=== PATIENT | male | born 1995 | race African-American/Black ===

== ENCOUNTER 2019-10-14 14:39 | Emergency (ER) | payer OTHER ==
[~2019-10-14] VITALS: Ht 190.5 cm; Wt 92.9 kg
[2019-10-14 14:40] VITALS: BP 125/89
[2019-10-14] MEDS ORDERED: MAGIC MOUTHWASH SUSPENSION BTL SS ONE (16:45)
[2019-10-14] MEDS ORDERED: MAGICMW SSP (16:58)
== END 2019-10-14 17:08 | disposition home or self-care (01) ==
LOC: M ED 14:39
DX: B08.4 Enteroviral vesicular stomatitis with exanthem (principal); Z91.018 Allergy to other foods

== ENCOUNTER 2020-04-09 09:07 | Emergency (ER) | payer OTHER ==
[~2020-04-09 09:07] MED LIST: MAGICMW SSP
[2020-04-09] MEDS ORDERED: ONDANSETRON 4MG/2ML VIAL As Ordered ONE (10:03)
[2020-04-09] MEDS ORDERED: KETOROLAC 30 MG/ML 1ML VIAL ONE (10:03)
[2020-04-09] MEDS ORDERED: ONDANSETRON 4MG/2ML VIAL ONE (10:03)
[2020-04-09] MEDS ORDERED: MORPHINE 4 MG/ML 1ML VIAL/SYRINGE (J2270) As Ordered ONE (10:03)
[2020-04-09] MEDS ORDERED: MORPHINE 4 MG/ML 1ML VIAL/SYRINGE (J2270) ONE (10:03)
[2020-04-09] MEDS ORDERED: KETOROLAC 30 MG/ML 1ML VIAL As Ordered ONE (11:29)
== END 2020-04-09 12:42 | disposition home or self-care (01) ==
LOC: M ED 09:07
DX: S93.402A Sprain of unspecified ligament of left ankle, initial encounter (principal); S70.01XA Contusion of right hip, initial encounter; S70.211A Abrasion, right hip, initial encounter; W10.9XXA Fall (on) (from) unspecified stairs and steps, initial encounter; Y92.89 Other specified places as the place of occurrence of the external cause; F17.200 Nicotine dependence, unspecified, uncomplicated
CPT/HCPCS: 72110; 73502; 73610; 96361; 96374; 96375; 99284; J1885; J2270; J2405

== ENCOUNTER 2022-03-01 09:45 | Emergency (ER) | payer OTHER ==
[~2022-03-01] VITALS: Ht 190.5 cm; Wt 93.5 kg
[2022-03-01 09:46] VITALS: BP 142/85
[2022-03-01 11:23] LABS: BASO # 0.1 10^3/uL (0.0-0.2); BASO % 1.1 % (0.0-1.0); EOS # 0.2 10^3/uL (0.0-0.5); EOS % 3.4 % (0.0-3.0); HEMATOCRIT 43.7 % (42.0-52.0); HEMOGLOBIN 14.3 g/dl (13.5-17.5); LYMPH % 45.5 % (24.0-44.0); MEAN CORPUSCULAR HEMOGLOBIN 30.7 pg (27.0-33.0); MEAN CORPUSCULAR HGB CONC 32.7 g/dl (32.0-36.5); MEAN CORPUSCULAR VOLUME 93.8 fl (80.0-96.0); MONO # 0.4 10^3/uL (0.0-0.8); MONO % 8.3 % (2.0-8.0); NEUTROPHILS # 1.8 10^3/uL (1.5-8.5); NEUTROPHILS % 40.8 % (36.0-66.0); PLATELET COUNT, AUTOMATED 209 10^3/uL (150-450); RED BLOOD COUNT 4.66 10^6/uL (4.30-6.10); WHITE BLOOD COUNT 4.4 10^3/uL (4.0-10.0)
[2022-03-01 11:28] LABS: APPEARANCE, URINE CLEAR (CLEAR); BACTERIA, URINE AUTO NEGATIVE (NEGATIVE); BILIRUBIN, URINE AUTO NEGATIVE (NEGATIVE); BLOOD, URINE BLOOD NEGATIVE (NEGATIVE); COLOR, URINE YELLOW (YELLOW); GLUCOSE, URINE (UA) AUTO NEGATIVE (NEGATIVE); KETONE, URINE AUTO NEGATIVE (NEGATIVE); LEUKOCYTE ESTERASE, URINE AUTO NEGATIVE (NEGATIVE); NITRITE, URINE AUTO NEGATIVE (NEGATIVE); PROTEIN, URINE AUTO NEGATIVE (NEGATIVE); RBC, URINE AUTO 0 /HPF (0-3); SPECIFIC GRAVITY URINE AUTO 1.016 (1.002-1.035); SQUAMOUS EPITHELIAL CELL UR AU 0 /HPF (0-6); UROBILINOGEN, URINE AUTO 0.2 mg/dL (0.0-2.0); WBC, URINE AUTO 0 /HPF (0-3)
[2022-03-01 11:43] LABS: ALBUMIN 3.8 GM/DL (3.2-5.2); ALT/SGPT 26 U/L (12-78); BILIRUBIN,DIRECT 0.3 MG/DL (0.0-0.2); BILIRUBIN,TOTAL 1.2 MG/DL (0.2-1.0); BLOOD UREA NITROGEN 9 MG/DL (7-18); CALCIUM LEVEL 9.2 MG/DL (8.5-10.1); CARBON DIOXIDE LEVEL 31 MEQ/L (21-32); CHLORIDE LEVEL 104 MEQ/L (98-107); CREATININE FOR GFR 1.16 MG/DL (0.70-1.30); GLOMERULAR FILTRATION RATE > 60.0 (>60); GLUCOSE, FASTING 93 MG/DL (70-100); LIPASE 80 U/L (73-393); POTASSIUM SERUM 4.9 MEQ/L (3.5-5.1); SODIUM LEVEL 139 MEQ/L (136-145); TOTAL PROTEIN 6.9 GM/DL (6.4-8.2)
[2022-03-01] MEDS ORDERED: PROT20TA11 PO (13:11)
== END 2022-03-01 13:38 | disposition home or self-care (01) ==
LOC: M ED 09:45
DX: K80.50 Calculus of bile duct without cholangitis or cholecystitis without obstruction (principal); F17.200 Nicotine dependence, unspecified, uncomplicated; Z91.018 Allergy to other foods

== ENCOUNTER 2022-03-03 15:33 | Emergency (ER) | payer OTHER ==
[~2022-03-03] VITALS: Ht 190.5 cm; Wt 93.6 kg
[~2022-03-03 15:33] MED LIST changes: +PROT20TA11 PO
[2022-03-03 22:17] VITALS: BP 150/84
== END 2022-03-04 02:39 | disposition left against medical advice (07) ==
LOC: M ED 15:33
DX: Z53.21 Procedure and treatment not carried out due to patient leaving prior to being seen by health care provider (principal)

== ENCOUNTER → 2023-08-19 | Outpatient (REF) | payer OTHER | LOC: M LAB REF 17:52 | PROVIDERS: ATTEND Physician Assistant Medical | DX: J02.9 Acute pharyngitis, unspecified (principal) ==

== ENCOUNTER 2024-05-18 01:29 | Emergency (ER) | payer OTHER ==
[~2024-05-18] VITALS: Ht 190.5 cm; Wt 97.4 kg
[2024-05-18] VITALS (11 sets, daily range): BP systolic 107–142; BP diastolic 51–69; TEMP 98.5; O2SAT 98–99
[2024-05-18 02:22] LABS: VENOUS BASE EXCESS -0.3 (-2.0-2.0); VENOUS HCO3 26.2 MMOL/L (23.0-27.0); VENOUS O2 SATURATION 80.2 % (60.0-80.0); VENOUS PARTIAL PRESSURE O2 45.4 mmHg (30.0-50.0); VENOUS PH 7.337 UNITS (7.330-7.430); VENOUS STANDARD HCO3 23.8 MMOL/L; VENOUS TOTAL CO2 27.7 MMOL/L (24.0-28.0)
[2024-05-18 02:28] LABS: BASO # 0.1 10^3/uL (0.0-0.2); BASO % 0.9 % (0.0-1.0); EOS # 0.4 10^3/uL (0.0-0.5); HEMATOCRIT 39.3 % (42.0-52.0); HEMOGLOBIN 13.1 g/dl (13.5-17.5); LYMPH # 2.3 10^3/uL (1.5-5.0); MEAN CORPUSCULAR HEMOGLOBIN 31.7 pg (27.0-33.0); MEAN CORPUSCULAR HGB CONC 33.3 g/dl (32.0-36.5); MEAN CORPUSCULAR VOLUME 95.2 fl (80.0-96.0); MONO # 0.6 10^3/uL (0.0-0.8); NEUTROPHILS # 2.5 10^3/uL (1.5-8.5); NEUTROPHILS % 42.6 % (36.0-66.0); PLATELET COUNT, AUTOMATED 250 10^3/uL (150-450); RED BLOOD COUNT 4.13 10^6/uL (4.30-6.10); WHITE BLOOD COUNT 5.8 10^3/uL (4.0-10.0)
[2024-05-18 02:40] LABS: INR 1.01; PARTIAL THROMBOPLASTIN TIME 26.7 SECONDS (24.8-34.2)
[2024-05-18 02:52] LABS: BLOOD UREA NITROGEN 16 MG/DL (9-23); CALCIUM LEVEL 8.9 MG/DL (8.5-10.1); CARBON DIOXIDE LEVEL 27 MMOL/L (20-31); CHLORIDE LEVEL 108 MMOL/L (98-107); CREATININE FOR GFR 1.05 MG/DL (0.70-1.30); GLOMERULAR FILTRATION RATE > 60.0 (>60); GLUCOSE, FASTING 97 MG/DL (60-100); SODIUM LEVEL 139 MMOL/L (136-145)
[2024-05-18] MEDS ORDERED: ASPI81TA26 PO (07:18)
[2024-05-18] MEDS: ASPIRIN 81MG CHEW TABLET PO ONE (07:24)
== END 2024-05-18 07:30 | disposition left against medical advice (07) ==
LOC: M ED 01:29
DX: G45.9 Transient cerebral ischemic attack, unspecified (principal); I44.0 Atrioventricular block, first degree; F17.210 Nicotine dependence, cigarettes, uncomplicated; Z91.018 Allergy to other foods; Z79.1 Long term (current) use of non-steroidal anti-inflammatories (NSAID); Z53.9 Procedure and treatment not carried out, unspecified reason